=== PATIENT | female | born 1955 | race Caucasian/White ===

== ENCOUNTER → 2023-05-06 14:23 | Outpatient (REF) | payer BC, SELFPAY | LOC: HWRAD 14:23 | PROVIDERS: ATTENDING PHYSICIAN Internal Medicine | DX: E04.1 Nontoxic single thyroid nodule (principal) | CPT/HCPCS: 76536 ==

== ENCOUNTER → 2023-05-30 10:39 | Outpatient (REF) | payer BC, SELFPAY | LOC: RAD 10:39 | PROVIDERS: ATTENDING PHYSICIAN Internal Medicine Rheumatology; FAMILY PHYSICIAN Internal Medicine | DX: M81.0 Age-related osteoporosis without current pathological fracture (principal) | CPT/HCPCS: 77080 ==

== ENCOUNTER → 2023-07-03 07:09 | Outpatient (REF) | payer BC, SELFPAY | LOC: MRI 3T 07:09 | PROVIDERS: ATTENDING PHYSICIAN Orthopaedic Surgery; FAMILY PHYSICIAN Internal Medicine | DX: S83.242A Other tear of medial meniscus, current injury, left knee, initial encounter (principal) | CPT/HCPCS: 73721 ==

== ENCOUNTER → 2023-09-16 13:08 | Outpatient (REF) | payer BC, SELFPAY | LOC: WDC 13:08 | PROVIDERS: ATTENDING PHYSICIAN Obstetrics & Gynecology; FAMILY PHYSICIAN Internal Medicine | DX: Z12.31 Encounter for screening mammogram for malignant neoplasm of breast (principal) | CPT/HCPCS: 77063; 77067 ==

== ENCOUNTER → 2023-10-10 07:41 | Outpatient (REF) | payer BC, SELFPAY | LOC: MRI 3T 07:41 | PROVIDERS: ATTENDING PHYSICIAN Obstetrics & Gynecology; FAMILY PHYSICIAN Internal Medicine | DX: R92.8 Other abnormal and inconclusive findings on diagnostic imaging of breast (principal) | CPT/HCPCS: 77049; A9585 ==

== ENCOUNTER → 2024-04-16 07:43 | Outpatient (REF) | payer BC, SELFPAY | LOC: WOUND 07:43 | PROVIDERS: ATTENDING PHYSICIAN Surgery; FAMILY PHYSICIAN Internal Medicine | DX: T23.271A Burn of second degree of right wrist, initial encounter (principal); T21.21XA Burn of second degree of chest wall, initial encounter; T23.251A Burn of second degree of right palm, initial encounter; X19.XXXA Contact with other heat and hot substances, initial encounter | CPT/HCPCS: 99203 ==

== ENCOUNTER → 2024-04-23 08:38 | Outpatient (REF) | payer BC, SELFPAY | LOC: WOUND 08:38 | PROVIDERS: ATTENDING PHYSICIAN Surgery; FAMILY PHYSICIAN Internal Medicine | DX: T23.271A Burn of second degree of right wrist, initial encounter (principal); T21.21XA Burn of second degree of chest wall, initial encounter; T23.251A Burn of second degree of right palm, initial encounter; X19.XXXA Contact with other heat and hot substances, initial encounter | CPT/HCPCS: 99213 ==

== ENCOUNTER → 2024-04-30 08:47 | Outpatient (REF) | payer BC, SELFPAY | LOC: WOUND 08:47 | PROVIDERS: ATTENDING PHYSICIAN Surgery; FAMILY PHYSICIAN Internal Medicine | DX: T23.271A Burn of second degree of right wrist, initial encounter (principal); T21.21XA Burn of second degree of chest wall, initial encounter; T23.251A Burn of second degree of right palm, initial encounter; X12.XXXA Contact with other hot fluids, initial encounter | CPT/HCPCS: 99212 ==

== ENCOUNTER → 2024-09-26 08:48 | Outpatient (REF) | payer MEDICARE, OTHER, SELFPAY | LOC: WDC 08:48 | PROVIDERS: ATTENDING PHYSICIAN Obstetrics & Gynecology; FAMILY PHYSICIAN Internal Medicine | DX: Z12.31 Encounter for screening mammogram for malignant neoplasm of breast (principal) | CPT/HCPCS: 77063; 77067 ==

== ENCOUNTER 2024-10-01 06:18 | Day surgery (SDC) | payer MEDICARE, OTHER, SELFPAY ==
[2024-10-01 07:47] LABS: Glucose - Point of Care 84 mg/dl (70-99)
== END 2024-10-01 09:16 | disposition home or self-care (01) ==
LOC: GI 06:18
PROVIDERS: ATTENDING PHYSICIAN Internal Medicine Gastroenterology
DX: Z12.11 Encounter for screening for malignant neoplasm of colon (principal); D12.0 Benign neoplasm of cecum; D12.2 Benign neoplasm of ascending colon; D12.4 Benign neoplasm of descending colon; K63.5 Polyp of colon; K57.30 Diverticulosis of large intestine without perforation or abscess without bleeding; K64.8 Other hemorrhoids; K64.4 Residual hemorrhoidal skin tags; K21.00 Gastro-esophageal reflux disease with esophagitis, without bleeding; Q39.9 Congenital malformation of esophagus, unspecified; K44.9 Diaphragmatic hernia without obstruction or gangrene; K31.7 Polyp of stomach and duodenum; K31.89 Other diseases of stomach and duodenum; Z86.0101 Personal history of adenomatous and serrated colon polyps; Z80.0 Family history of malignant neoplasm of digestive organs
CPT/HCPCS: 45385; 43239; 82962; 88305

== ENCOUNTER → 2024-10-09 08:31 | Outpatient (REF) | payer MEDICARE, OTHER, SELFPAY | LOC: WDC 08:31 | PROVIDERS: ATTENDING PHYSICIAN Obstetrics & Gynecology; FAMILY PHYSICIAN Internal Medicine | DX: R92.8 Other abnormal and inconclusive findings on diagnostic imaging of breast (principal) | CPT/HCPCS: 76642 ==

== ENCOUNTER → 2025-01-07 10:53 | Outpatient (REF) | payer MEDICARE, OTHER, SELFPAY | LOC: MRI 3T 10:53 | PROVIDERS: ATTENDING PHYSICIAN Surgery | DX: R92.2 Inconclusive mammogram (principal); Z80.3 Family history of malignant neoplasm of breast | CPT/HCPCS: 77049; A9585 ==

== ENCOUNTER 2025-02-28 06:43 | Day surgery (SDC) | payer MEDICARE, OTHER, SELFPAY ==
[2025-02-22 13:17] VITALS: BMI 27.2
[2025-02-28 13:45] VITALS: BP 147/75
[2025-02-28 13:58] VITALS: BMI 27.2
[2025-02-28] MEDS: NORMOSOL-R/PLASMALYTE-A 1000 IV (13:59)
[2025-02-28 14:03] LABS: Glucose - Point of Care 81 mg/dl (70-99)
[2025-02-28 16:12] LABS: Glucose - Point of Care 76 mg/dl (70-99)
[2025-02-28 17:16] VITALS: BP 124/70
[2025-02-28 17:30] VITALS: BP 130/72
[2025-02-28 17:45] VITALS: BP 130/70
[2025-02-28] MEDS: TYLENOL 650 MG PO (18:08)
== END 2025-02-28 18:28 | disposition home or self-care (01) ==
LOC: SDS 06:43
PROVIDERS: ATTENDING PHYSICIAN Surgery; FAMILY PHYSICIAN Internal Medicine
DX: K64.2 Third degree hemorrhoids (principal)
CPT/HCPCS: 46948; 82962